=== PATIENT | female | born 1940 | race African-American/Black ===

== ENCOUNTER 2017-06-02 14:13 | Emergency (ER) | payer MEDICARE, OTHER ==
[~2017-06-02] VITALS: Ht 167.6 cm; Wt 59.0 kg
[2017-06-02 15:45] LABS: INR 1.5; PROTHROMBIN TIME 16.1 sec (9.4-11.6)
[2017-06-02 15:48] LABS: MEAN CORPUSCULAR HEMOGLOBIN 27.5 pg (28.0-32.0); MEAN CORPUSCULAR VOLUME 83.6 fL (81.0-99.0); RED BLOOD CELL COUNT 2.37 mill/uL (4.2-5.4); RED CELL DISTRIBUTION WIDTH 22.9 % (11.6-14.6)
[2017-06-02 15:53] LABS: HEMATOCRIT. 19.8 % (36.0-48.0); HEMOGLOBIN. 6.5 g/dL (12.0-16.0)
[2017-06-02 15:57] LABS: CHLORIDE 97 mEq/L (98-107); TROPONIN I 0.04 ng/mL (0.00-0.04)
[2017-06-02 16:11] LABS: PLATELET 44 x1000/uL (130-400)
[2017-06-02 16:13] LABS: PLATELET ESTIMATE MARKEDLY DECREASED
[2017-06-02] MEDS ORDERED: METOCLOPRAMIDE HCL 10MG/2ML VIAL IV ONE (16:30)
[2017-06-02 17:03] VITALS: BP 104/62
== END 2017-06-02 18:44 | disposition left against medical advice (07) ==
LOC: ER 15:00
DX: D64.9 Anemia, unspecified (principal); R07.9 Chest pain, unspecified; R00.0 Tachycardia, unspecified; E11.9 Type 2 diabetes mellitus without complications; I10 Essential (primary) hypertension; Z85.118 Personal history of other malignant neoplasm of bronchus and lung
CPT/HCPCS: 36415; 71045; 80053; 83880; 84484; 85025; 85610; 86900; 93005; 99285

== ENCOUNTER 2017-06-03 08:20 | Emergency (ER) | payer MEDICARE, OTHER ==
[~2017-06-03] VITALS: Ht 162.6 cm; Wt 63.0 kg
[2017-06-03 09:32] LABS: BASOPHILS % 0.5 % (0.0-2.0); LYMPHOCYTES % 11.7 % (20.0-50.0); MEAN CORPUSCULAR HEMOGLOBIN 27.8 pg (28.0-32.0); MEAN CORPUSCULAR VOLUME 83.5 fL (81.0-99.0); MEAN PLATELET VOLUME 10.3 fl (7.4-10.4); MONOCYTES % 7.7 % (2.0-8.0); NEUTROPHILS % 80.1 % (40.0-76.0); PLATELET 53 x1000/uL (130-400); RED BLOOD CELL COUNT 2.37 mill/uL (4.2-5.4); RED CELL DISTRIBUTION WIDTH 22.5 % (11.6-14.6)
[2017-06-03 09:36] LABS: CHLORIDE 97 mEq/L (98-107)
[2017-06-03 09:43] LABS: HEMATOCRIT. 19.8 % (36.0-48.0); HEMOGLOBIN. 6.6 g/dL (12.0-16.0)
[2017-06-03 10:03] LABS: PLATELET ESTIMATE DECREASED
[2017-06-03 12:30] VITALS: BP 130/68
== END 2017-06-03 17:04 | disposition left against medical advice (07) ==
LOC: ER 08:20
DX: D64.9 Anemia, unspecified (principal); R11.2 Nausea with vomiting, unspecified; E11.9 Type 2 diabetes mellitus without complications; I10 Essential (primary) hypertension; Z85.118 Personal history of other malignant neoplasm of bronchus and lung
CPT/HCPCS: 36415; 80053; 85025; 99284